=== PATIENT | female | born 1960 | race Caucasian/White ===

== ENCOUNTER 2017-09-12 06:42 | Inpatient (IN) | payer BC ==
[~2017-09-12 06:42] MED LIST: Buffered Lidocaine 0.9% SYRIN* 5 ML/SYR SYRINGE INTRADERM ONE; Metoclopramide TAB* 10 MG PO ONE; celeCOXIB CAP* 200 MG PO ONE
[2017-09-12] MEDS ORDERED: celeCOXIB CAP* 100 MG ONE ×2 (06:48→06:49)
[2017-09-12] MEDS ORDERED: Metoclopramide TAB* 10 MG ONE (06:48)
[2017-09-12] MEDS ORDERED: Lidocaine 1% MPF wEPI 200,000* 30 ML SDV ONE (08:05)
[2017-09-12] MEDS ORDERED: ceFOXitin(*) 1 GM VIAL ONE (08:14)
[2017-09-12] MEDS ORDERED: Midazolam* 1 MG/ML 5 ML VIAL (5 MG) ONE ×2 (08:27→09:18)
[2017-09-12] MEDS ORDERED: fentaNYL* 50 MCG/ML 2 ML VIAL (100 MCG VIAL) ONE ×3 (08:27→11:38)
[2017-09-12] MEDS ORDERED: VASOPRESSIN 20 UNITS/ML 1 ML VIAL ONE (08:28)
[2017-09-12] MEDS ORDERED: oxyCODONE TAB* 5 MG TAB PO PRN (09:37)
[2017-09-12] MEDS ORDERED: Acetaminophen TAB* 325 MG PO PRN (09:37)
[2017-09-12] MEDS ORDERED: Naloxone* 0.4 MG/ML 1 ML VIAL IV PRN (09:37)
[2017-09-12] MEDS ORDERED: Ondansetron INJ* 2 MG/ML VIAL IV PRN (09:37)
[2017-09-12] MEDS ORDERED: diPHENhydraMINE IV* 50 MG/ML 1 ml VIAL (BENADRYL) IV PRN (09:37)
[2017-09-12] MEDS ORDERED: LR @ 125 MLS/HR IV SCH (10:40)
[2017-09-12] MEDS: fentaNYL* 50 MCG/ML 2 ML VIAL (100 MCG VIAL) IV PRN ×3 (10:50→11:39)
[2017-09-12] MEDS ORDERED: oxyCODONE TAB* 5 MG TAB ONE (11:21)
[2017-09-12] MEDS ORDERED: Acetaminophen TAB* 325 MG ONE (11:22)
[2017-09-12] MEDS ORDERED: Ibuprofen TAB* 600 MG ONE (11:52)
[2017-09-12] MEDS ORDERED: Ibuprofen TAB* 600 MG PO PRN (12:23)
[2017-09-12] MEDS ORDERED: Ondansetron 40 MG VIAL* 2 MG/ML 20 ML VIAL IV PRN (12:25)
[2017-09-12] MEDS ORDERED: HYDROmorphone INJ* 2 MG/ML CARPUJECT SYRINGE IV PRN (12:25)
[2017-09-12] MEDS ORDERED: oxyCODONE/Acetamin 5/325 MG* TAB PO PRN ×2 (13:00→13:17)
[2017-09-12 15:57] LABS: Hematocrit 37 % (35-47); Hemoglobin 12.1 g/dl (12.0-16.0)
--- NOTE | 2017-09-13 04:17 | OP ---
OPERATIVE REPORT: DATE OF OPERATION: 09/12/17 DATE OF : 62 SURGEON: Avinash Hatch MD COMPUTER ENGINEERING PROFESSOR: Dr. Hood. ANESTHESIA: Spinal. PRE-OP DIAGNOSIS: Uterovaginal prolapse. POST-OP DIAGNOSIS: Uterovaginal prolapse. OPERATIVE PROCEDURE: Transvaginal hysterectomy, and anterior and posterior repair. ESTIMATED BLOOD LOSS: 100 cc. SPECIMEN: Includes uterus. FINDINGS: On exam under anesthesia, there was a second-degree cystocele, second- degree uterine prol apse, and a first-degree rectocele. During the procedure the tubes and ovaries could not be well vis ualized. They were palpably normal. DESCRIPTION OF PROCEDURE: The patient identified, procedure identified as a transvaginal hysterectom y, anterior and posterior colporrhaphy. The patient was taken to the operating room, prepped and lorie ped in usual fashion in the dorsal lithotomy position under spinal anesthesia. Two single-tooth chelsie culums were placed on the lateral aspect of the cervix. A circumferential incision was made at the c ervicovaginal junction and the vagina was dissected cephalad. The cul-de-sac was entered via sharp d issection. The vagina was dissected further cephalad. The anterior vesicoperitoneal was inci sed by sharp dissection. The uterosacral ligaments were clamped, cut, and ligated. The cardinal lig aments were then, using the LigaSure Impact ligated and dissected. The broad ligament was ligated an d dissected using LigaSure impact. The ovarian ligaments were then grasped with Marisa clamps, sutur e ligated, and incised using the LigaSure Impact on both sides. Again, the above findings were noted at this time. Good hemostasis was noted on all the pedicles. A modified Arauz's stitch was placed in the posterior cul-de- sac. Attention was turned to the anterior portion of the procedure. A 1% l idocaine with epi was injected at the cervicovaginal junction and dissected cephalad using the 1% lid ocaine with epi and then the Metzenbaum scissors. An incision was made in the midline up to the leve l 2 cm above the urethra. The endopelvic fascia was dissected off the vaginal mucosa, cephalad to th e level of the ischial tuberosities. The endopelvic fascia was then plicated in the midline using 2- 0 Vicryl in a simple fashion. Good hemostasis was achieved. The vaginal mucosa was then reapproxima federico using 3-0 Polysorb in a running fashion. The vaginal cuff was then closed using 0 Polysorb in a [id number]-[id number] fashion and the Arauz's stitch was tied down with good support noted. A V-incision was made in the perineal body and then once again 1% lidocaine with epi was used to dissect the vagin al mucosa off the endopelvic fascia and an incision was made in the midline up to approximately 2 cm below the cuff. The endopelvic fascia once again was dissected off the vaginal mucosa in the midline . The endopelvic fascia was then plicated using 2-0 Vicryl in a simple fashion. A 0 Polysorb was us ed to plicate the perineal body and then the vaginal mucosa was reapproximated using 3-0 Polysorb in a running fashion down the vagina and then in a simple fashion on the skin. Hemostasis achieved. The vagina was packed. A Duran catheter had been placed with clear urine obtained. All sponge and inst rument counts were correct and the patient returned to the recovery room in stable condition. [id number]/[facility] #: [id number]
[2017-09-13 08:10] VITALS: BP 115/63
[2017-09-13] MEDS ORDERED: Docusate CAP* 100 MG PO PRN (08:36)
--- NOTE | 2017-09-20 20:57 | DS ---
DISCHARGE SUMMARY: DATE OF ADMISSION: 09/12/17 DATE OF DISCHARGE: 09/13/17 PRINCIPAL DIAGNOSIS: Uterovaginal prolapse and post cystocele and rectocele. PRE-OP DIAGNOSIS: Uterovaginal prolapse. POST-OP DIAGNOSIS: Uterovaginal prolapse. HISTORY: On the , she underwent a transvaginal hysterectomy and anterior and posterior colporrha phy. Estimated blood loss at that time was 100 cc. She had a pack in place and stayed overnight. T he postop hemoglobin and hematocrit was 12.1 and 37. Her pathology showed benign cervical tissue, ut erine corpus with atrophy. She did well and went home on postoperative day #1 on Percocet and Motrin and will follow up in the office in a week's time. [id number]/[facility] #: [id number]
== END 2017-09-13 11:05 | disposition home or self-care (01) | DRG 513 ==
LOC: AA 06:42 → SSU 12:02
PROVIDERS: ADMIT Obstetrics & Gynecology; ATTEND Obstetrics & Gynecology
PROC: 0JQC0ZZ Repair Pelvic Region Subcutaneous Tissue and Fascia, Open Approach (ICD-10-PCS; 2017-09-12)
PROC: 0UT97ZZ Resection of Uterus, Via Natural or Artificial Opening (ICD-10-PCS; principal; 2017-09-12 08:30)
DX: N81.2 Incomplete uterovaginal prolapse (principal); F32.9 Major depressive disorder, single episode, unspecified; M19.90 Unspecified osteoarthritis, unspecified site; F17.210 Nicotine dependence, cigarettes, uncomplicated; Z88.0 Allergy status to penicillin; Z82.5 Family history of asthma and other chronic lower respiratory diseases; Z82.49 Family history of ischemic heart disease and other diseases of the circulatory system; Z80.9 Family history of malignant neoplasm, unspecified
CPT/HCPCS: 36415; 85014; 85018; 88305; A9270-GY; J0694; J1170; J2001; J2250; J3010

== ENCOUNTER 2018-08-20 04:54 | Emergency (ER) | payer BC ==
[2018-08-20 04:59] VITALS: BP 119/68
--- NOTE | 2018-08-20 05:16 | ED ---
Back Pain - HPI Summary HPI Summary: The patient is a 58 y/o F presenting to [facility] with a chief complaint of mid to upper back pain extending across the back from left to right (worse on right) starting at 0300 this morning. The stabbing pain is currently rated 6/10 in severity and is aggravated by deep breathing and rotation of the trunk. She additionally c/o SOB and nausea. She denies changes in urination or BM, vomiting , and decreased ROM in neck. She denies trauma to the back. She also reports that she has increased pain the right shoulder due to a recent diagnosis of bursitis from frequent bending over at work. She is currently going to physical therapy, which she states has been helping her shoulder feel better. Hx of back pain with two herniated discs. No other medical hx. - History of Current Complaint Chief Complaint: EDBackInjuryPain Stated Complaint: "BACK PAIN" PER PT Time Seen by Provider: 08/20/18 05:01 Hx Obtained From: Patient Onset/Duration: Sudden Onset, Lasting Hours - since 0300 this morning, Still Present Onset/Duration: Started Hours Ago, Atraumatic, Still Present Back Pain Location: Is Diffuse, Radiates To - across upper to mid back radiating from left to right Severity Initially: Moderate Severity Currently: Moderate Pain Intensity: 6 Pain Scale Used: 0-10 Numeric Character: Sharp - stabbing Aggravating Symptom(s): Movement Alleviating Symptom(s): Rest Associated Signs And Symptoms: Positive: Other - POSITIVE: SOB, nausea, increased pain in right shoulder secondary to bursitis; NEGATIVE: changes in urination or BM, vomiting, decreased ROM in neck - Allergies/Home Medications Allergies/Adverse Reactions: Allergies Allergy/AdvReac Type Severity Reaction Status Date / Time Penicillins Allergy Rash Verified 01/03/18 09:16 PMH/Surg Hx/FS Hx/Imm Hx Endocrine/Hematology History: Denies: Hx Diabetes Cardiovascular History: Denies: Hx Hypertension Respiratory History: Reports: Hx Chronic Obstructive Pulmonary Disease (COPD) Denies: Other Respiratory Problems/Disorders GI History: Denies: Other GI Disorders Musculoskeletal History: Reports: Hx Arthritis - spine, Hx Bursitis - in right shoulder, Other Musculoskeletal History - two herniated discs Sensory History: Reports: Hx Contacts or Glasses Denies: Hx Hearing Aid Opthamlomology History: Reports: Hx Contacts or Glasses Psychiatric History: Reports: Hx Depression - no meds Denies: Other Psychiatric Issues/Disorders - Surgical History Surgery Procedure, Year, and Place: [place] [facility] [place] [facility] [place]. [place]ilectomy, 1977 Hx Anesthesia Reactions: No Infectious Disease History: No Infectious Disease History: Denies: Traveled Outside the [place] in Last 30 Days - Family History Known Family History: Positive: Respiratory Disease - Social History Alcohol Use: Rare Alcohol Amount: social Hx Substance Use: No Substance Use Type: Reports: None Hx Tobacco Use: Yes Smoking Status (MU): Heavy Every Day Tobacco Smoker Amount Used/How Often: 1/2 pack a day for 25 yrs Have You Smoked in the Last Year: Yes Review of Systems Positive: Shortness Of Breath Positive: Nausea, Other - NEGATIVE: changes in BM. Negative: Vomiting Positive: other - NEGATIVE: changes in urination Positive: Other - upper-mid back pain extending from left to right (worse on right), increased pain in right shoulder secondary to bursitis. Negative: Decreased ROM - in neck All Other Systems Reviewed And Are Negative: Yes Physical Exam - Summary Physical Exam Summary: Appearance: well appearing, no pain distress Skin: warm, dry, reflects adequate perfusion Head/face: normal Eyes: EOMI, DANIEL ENT: mucous membranes moist Neck: supple, non-tender Respiratory: CTA, breath sounds present Cardiovascular: RRR, pulses symmetrical Abdomen: non-tender, soft Bowel Sounds: present Musculoskeletal: Tenderness in right lumbar region, strength/ROM intact Neuro: normal, sensory motor intact, A&Ox3 Triage Information Reviewed: Yes Vital Signs On Initial Exam: Initial Vitals Temp Pulse Resp BP Pulse Ox 98.7 F 60 18 119/68 100 08/20/18 04:55 08/20/18 04:55 08/20/18 04:55 08/20/18 04:55 08/20/18 04:55 Vital Signs Reviewed: Yes Procedures - Procedure Summary Procedure Summary: Trigger Point Injection: done for pain, patient laid supine, right lumbar musculature cleaned with alcohol, musculature was injected with a total of 10 cc 0.5% Bupivacaine with Epinephrine in divided aliquots which was then massaged through the tissue, pain relief excellent, ROM restored, procedure tolerated well without complications. Diagnostics - Vital Signs Vital Signs Temp Pulse Resp BP Pulse Ox 08/20/18 04:55 98.7 F 60 18 119/68 100 - Laboratory Lab Statement: Any lab studies that have been ordered have been reviewed, and results considered in the medical decision making process. Re-Evaluation - Re-Evaluation First Eval Re-Evaluation Time: 05:40 Change: Improved Comment: Patient receives trigger point injection. She tolerated the procedure well. Back Pain Course/Dx - Course Course Of Treatment: Nurses notes reviewed. Patient with abrupt onset of muscle spasm in her upper lumbar area on the right. Patient states that she daria and bends a lot and spasm is limiting her range of motion. She has no CVA tenderness or urinary symptoms. There is definite spasm which was relieved with trigger point injections. Her range of motion returned. She'll be treated with muscle relaxation and NSAID. Follow-up per care physician. - Diagnoses Provider Diagnoses: Lumbar strain, Lumbar paraspinal muscle spasm Discharge - Sign-Out/Discharge Documenting (check all that apply): Patient Departure - Patient will be discharged home. Patient Received Moderate/Deep Sedation with Procedure: No - Discharge Plan Condition: Improved Disposition: HOME Prescriptions: Cyclobenzaprine (NF) [Cyclobenzaprine 5 MG (NF)] 5 mg PO TID PRN #10 tab PRN Reason: muscle pain Ibuprofen TAB* [Motrin TAB* 600 MG] 600 mg PO Q8H PRN #15 tab PRN Reason: Pain Patient Education Materials: Low Back Strain (ED), Lower Back Exercises (ED) Forms: *Work Release Referrals: Stuart Patel MD [Medical Doctor] - Additional Instructions: Ice, massage, range of motion exercises and anti-inflammatory/muscle relaxers that are prescribed. Call your doctor today to schedule prompt follow-up. Return with fever, urinary symptoms, worse, new symptoms or other concerns. - Billing Disposition and Condition Condition: IMPROVED Disposition: Home - Attestation Statements Document Initiated by Luanneibkofi: Yes Documenting Scribe: Kajal Church Provider For Whom Sakina is Documenting (Include Credential): Dr. Hamzah Simms MD Scribe Attestation: Kajal Tinajero, rexed for Dr. Hamzah Simms MD on 08/20/18 at 0628. Scribe Documentation Reviewed: Yes - it looks like my worse Provider Attestation: The documentation as recorded by the Kajal anaya accurately reflects the service I personally performed and the decisions made by me, Dr. Hamzah Simms MD Status of Scribe Document: Viewed
[2018-08-20] MEDS ORDERED: Cyclobenzaprine TAB* 10 MG PO ONE (05:18)
[2018-08-20] MEDS ORDERED: Ibuprofen TAB* 600 MG PO ONE (05:18)
[2018-08-20] MEDS ORDERED: Bupivacaine 0.5% W/EPI SDV* 30 ML VIAL INJ ONE (05:19)
== END 2018-08-20 05:35 | disposition home or self-care (01) ==
LOC: ED 04:54
DX: S39.012A Strain of muscle, fascia and tendon of lower back, initial encounter (principal); M62.838 Other muscle spasm; J44.9 Chronic obstructive pulmonary disease, unspecified; F32.9 Major depressive disorder, single episode, unspecified; F17.210 Nicotine dependence, cigarettes, uncomplicated; Z88.0 Allergy status to penicillin; X58.XXXA Exposure to other specified factors, initial encounter; Y92.9 Unspecified place or not applicable; M71.9 Bursopathy, unspecified
CPT/HCPCS: 99282; A9270-GY